=== PATIENT | female | born 1975 | race Caucasian/White ===

== ENCOUNTER 2017-10-23 21:22 | Emergency (ER) | payer BC ==
[2017-10-23] MEDS ORDERED: Famotidine/PF 20 mg/2ml Vial ONE (21:49)
[2017-10-23] MEDS ORDERED: diphenhydrAMINE 50 MG/ML VIAL ONE (21:49)
[2017-10-23] MEDS ORDERED: methylPREDNISolone Sod Succ/PF 125 MG/2 ML VIAL ONE (21:49)
[2017-10-23] MEDS ORDERED: Ondansetron ODT 4 MG TAB ONE (22:09)
== END 2017-10-23 23:10 | disposition home or self-care (01) ==
LOC: NAV ERS 21:22
DX: T63.461A Toxic effect of venom of wasps, accidental (unintentional), initial encounter (principal); Z79.899 Other long term (current) drug therapy
CPT/HCPCS: 96374; 96375; J1200; J2930; Q0162; S0028